=== PATIENT | female | born 1975 | race Caucasian/White ===

== ENCOUNTER → 2016-08-09 | Outpatient (CLI) | payer MEDICAID ==
--- NOTE | 2016-08-09 16:16 | RADIOLOGY REPORT (SQ) ---
EXAM DESCRIPTION: U/S OB 14+ TRNABD 1GES W/O DOP COMPLETED DATE/TIME: 08/09/2016 3:39 pm REASON FOR STUDY: ENCOUNTER FOR SUPERVISION OF OTHER NORMAL , SECOND TRIMESTER (Z34. Z34.82 ENCOUNTER FOR SUPRVSN OF NORMAL , SECOND TRI COMPARISON: None. TECHNIQUE: Static and Dynamic grayscale imaging performed of gravid uterus using transabdominal appr oach. Additional selected color Doppler and spectral images recorded. All stored on PACS. LIMITATIONS: positioning limits some anatomic evaluation. FINDINGS: EGA: 44 weeks 0 days TALA: 11/29/2016 EFW: 549 g PERCENTILE: Not calculated. KAMAR: 3.7 PLACENTA: Posterior grade 1 PRESENTATION: Breech. ANATOMY: HEART RATE: 145 beats per minute. FOUR CHAMBER HEART: Visualized. THREE VESSEL CORD: Yes. CORD INSERTION: Visualized. KIDNEYS AND BLADDER: Not well visualized. STOMACH: Visualized. Appears normal. SPINE: Spine not well visualized. BRAIN AND LATERAL VENTRICLES: Ventricles not well visualized. OTHER: No other significant finding. MATERNAL ADNEXA: Maternal ovaries not visualized. CERVICAL LENGTH: 3.7 cm Closed. OTHER: No other significant finding. IMPRESSION: LIVING INTRAUTERINE . ESTIMATED GESTATIONAL AGE 24 weeks 0 days Oligohydramnios. Trimester of : Second trimester - 13 weeks 1 day to 27 weeks 6 days. TECHNICAL DOCUMENTATION: JOB ID: [id number]- All Rights Reserved
== END ==
LOC: RAD 14:08
PROVIDERS: ATTEND Nurse Practitioner Women's Health
DX: O41.02X0 Oligohydramnios, second trimester, not applicable or unspecified (principal); Z3A.24 24 weeks gestation of pregnancy
CPT/HCPCS: 76805

== ENCOUNTER → 2016-09-09 | Outpatient (CLI) | payer MEDICAID ==
--- NOTE | 2016-09-09 16:29 | RADIOLOGY REPORT (SQ) ---
EXAM DESCRIPTION: U/S OB 14+ TRNABD 1GES W/O DOP COMPLETED DATE/TIME: 09/09/2016 4:06 pm REASON FOR STUDY: ENCOUNTER FOR SUPERVISION OF OTHER NORMAL , THIRD TRIMESTER Z34.83 ENCOU NTER FOR SUPRVSN OF NORMAL , THIRD TRIM COMPARISON: 08/09/2016 TECHNIQUE: Static and Dynamic grayscale imaging performed of gravid uterus using transabdominal appr oach. Additional selected color Doppler and spectral images recorded. All stored on PACS. LIMITATIONS: None. FINDINGS: EGA: 20 weeks 3 days TALA: 11/29/2016 EFW: Not recorded by technologist. PERCENTILE: Not recorded by technologist. KAMAR: 14.9 PLACENTA: Posterior. PRESENTATION: Breech. ANATOMY: HEART RATE: 157 beats per minute. FOUR CHAMBER HEART: Not visualized. THREE VESSEL CORD: Not visualized. CORD INSERTION: Not visualized. KIDNEYS AND BLADDER: Visualized. Appear normal. STOMACH: Not visualized. SPINE: Normal as visualized. BRAIN AND LATERAL VENTRICLES: Visualized. Appear normal. OTHER: No other significant finding. MATERNAL ADNEXA: Maternal ovaries not visualized. CERVICAL LENGTH: Not measured by technologist. OTHER: No other significant finding. IMPRESSION: LIVING INTRAUTERINE . ESTIMATED GESTATIONAL AGE 28 weeks 3 days. NO VISUALIZED ANOMALIES. Trimester of : Third trimester - 28 weeks to delivery. TECHNICAL DOCUMENTATION: JOB ID: [id number]- All Rights Reserved
== END ==
LOC: RAD 15:11
PROVIDERS: ATTEND Nurse Practitioner Women's Health
DX: Z34.83 Encounter for supervision of other normal pregnancy, third trimester (principal)
CPT/HCPCS: 76805

== ENCOUNTER 2016-10-18 17:27 | Outpatient (CLI) | payer MEDICAID ==
--- NOTE | 2016-10-18 18:09 | Non Stress Test Report ---
Non Stress Test Datetime Report Generated by CPN: 10/18/2016 18:09 DEMOGRAPHIC EGA NST: 34.0 INDICATION Indication for Study: Ordered by Provider Indication for Study (NST) Other: AMA MONITORING Monitor Explained: Monitor Explained; Test Explained; Patient Verbalized Understanding Time on Monitor: 10/18/2016 17:41 Time off Monitor: 10/18/2016 18:03 NST Duration: 22 NST INTERVENTIONS NST Interventions: PO Hydration; Reposition Patient Physician Notified NST: Dr Vincent BABY A: [id number] BABY A Movement : Present Contraction Frequency : 0 FHR Baseline : 120 Accelerations : 15X15 Decelerations : None Variability : Moderate 6-25bpm NST Review: Meets Criteria for Reactive NST NST Results: Reactive NST REPORT Report Trigger: Send Report
== END 2016-10-18 18:03 | disposition home or self-care (01) ==
LOC: LC 17:27
PROVIDERS: ATTEND Obstetrics & Gynecology
PROC: 4A1HXCZ Monitoring of Products of Conception, Cardiac Rate, External Approach (ICD-10-PCS; principal; 2016-10-18)
DX: O09.523 Supervision of elderly multigravida, third trimester (principal); Z3A.34 34 weeks gestation of pregnancy
CPT/HCPCS: 59025

== ENCOUNTER 2016-11-22 14:00 | Outpatient (CLI) | payer MEDICAID | END 2016-11-22 16:17 | disposition home or self-care (01) | LOC: LC 14:00 | PROVIDERS: ATTEND Specialist | PROC: 4A1HXCZ Monitoring of Products of Conception, Cardiac Rate, External Approach (ICD-10-PCS; principal; 2016-11-22) | DX: Z34.93 Encounter for supervision of normal pregnancy, unspecified, third trimester (principal) | CPT/HCPCS: 59025 ==

== ENCOUNTER 2016-12-02 20:31 | Inpatient (IN) | payer MEDICAID ==
--- NOTE | 2016-12-02 20:42 | Non Stress Test Report ---
Non Stress Test Datetime Report Generated by CPN: 12/02/2016 20:42 DEMOGRAPHIC EGA NST: 39.0 INDICATION Indication for Study: Other Indication for Study (NST) Other: repeat for AMA MONITORING Monitor Explained: Monitor Explained; Test Explained; Patient Verbalized Understanding Time on Monitor: 11/22/2016 15:40 Time off Monitor: 11/22/2016 16:00 NST Duration: 20 NST INTERVENTIONS NST Interventions: PO Hydration Physician Notified NST: K Matias, CNM BABY A: [id number] BABY A Movement : Present Contraction Frequency : x0 Accelerations : Prolonged Decelerations : None Variability : Moderate 6-25bpm NST Review: Meets Criteria for Reactive NST NST Review and Verified By : Rinku Dodd RN NST Results: Reactive NST REPORT Report Trigger: Send Report
[2016-12-02] MEDS ORDERED: MAG HYDROX/AL HYDROX/SIMETH SUSP 30 ML UDCUP PO PRN (21:00)
[2016-12-02] MEDS ORDERED: RINGERS SOLUTION,LACTATED 300 ML IV ONE (21:00)
[2016-12-02] MEDS ORDERED: DINOPROSTONE 10 MG VAGINAL INSERT.SR PV ONE (21:00)
[2016-12-02] MEDS ORDERED: OXYTOCIN/NORMAL SALINE 20 UNIT/1,000 ML RTUINJ IV PRN (21:00)
[2016-12-02] MEDS ORDERED: ACETAMINOPHEN 325 MG TABLET PO PRN (21:00)
[2016-12-02] MEDS ORDERED: ZOLPIDEM TARTRATE 5 MG TABLET PO PRN (21:00)
[2016-12-02] MEDS ORDERED: RINGERS SOLUTION,LACTATED 1,000 ML IV PRN (21:00)
[2016-12-02] MEDS ORDERED: DINOPROSTONE 10 MG VAGINAL INSERT.SR ONE (21:17)
[2016-12-02 22:15] LABS: ABSOLUTE EOSINOPHILS # (AUTO) 0.1 10^3/uL (0.0-0.6); ABSOLUTE LYMPHOCYTES (AUTO) 3.1 10^3/uL (0.5-4.7); ABSOLUTE MONOCYTES (AUTO) 0.8 10^3/uL (0.1-1.4); ABSOLUTE NEUT (AUTO) 10.1 10^3/uL (1.7-8.2); BASOPHILS % (AUTO) 0.2 % (0-2); EOSINOPHILS % (AUTO) 0.7 % (0-6); HEMATOCRIT 31.8 % (36.0-47.0); HEMOGLOBIN 10.9 g/dL (12.0-15.5); HGB HCT DIFFERENCE 0.9; LYMPHOCYTES % (AUTO) 21.9 % (13-45); MEAN CORPUSCULAR HEMOGLOBIN 29.7 pg (27.0-33.4); MEAN CORPUSCULAR HGB CONC 34.2 g/dL (32.0-36.0); MEAN CORPUSCULAR VOLUME 87 fl (80-97); MONOCYTES % (AUTO) 5.6 % (3-13); RED BLOOD COUNT 3.66 10^6/uL (3.72-5.28); RED CELL DISTRIBUTION WIDTH 14.3 % (11.5-14.0); SEGMENTED NEUTROPHILS % (AUTO) 71.6 % (42-78); WHITE BLOOD COUNT 14.1 10^3/uL (4.0-10.5)
[2016-12-02 22:40] LABS: APPEARANCE,URINE SLIGHTLY-CLOUDY; BILIRUBIN,URINE NEGATIVE (NEGATIVE); GLUCOSE, URINE NEGATIVE (NEGATIVE); KETONES,URINE NEGATIVE (NEGATIVE); LEUKOCYTE ESTERASE,URINE NEGATIVE (NEGATIVE); NITRITE,URINE NEGATIVE (NEGATIVE); PROTEIN,URINE NEGATIVE (NEGATIVE); URINE SPECIFIC GRAVITY 1.006; UROBILINOGEN,URINE NEGATIVE mg/dL (<2.0)
[2016-12-02 23:00] LABS: URINE BARBITURATES SCREEN NEGATIVE; URINE METHADONE SCREEN NEGATIVE; URINE PHENCYCLIDINE SCREEN NEGATIVE
[2016-12-02 23:05] LABS: URINE OPIATES LOW UNCONFIRMED POSITIVE
[2016-12-03] MEDS ORDERED: ZOLPIDEM TARTRATE 5 MG TABLET ONE (00:44)
[2016-12-03] MEDS ORDERED: OXYTOCIN/NORMAL SALINE 20 UNIT/1,000 ML RTUINJ ONE ×2 (11:40→19:11)
[2016-12-03] MEDS ORDERED: LIDOCAINE 1% INJ-PF (10 MG/ML) 30 ML SDV ONE (11:40)
[2016-12-03] MEDS ORDERED: MISOPROSTOL 0.2 MG TABLET ONE (11:40)
[2016-12-03] MEDS ORDERED: ACETAMINOPHEN 325 MG TABLET ONE (12:02)
--- NOTE | 2016-12-03 13:06 | L&D Progress Notes ---
PROGRESS NOTES Datetime Report Generated by CPN: 12/03/2016 13:06 PROGRESS NOTE Procedures: Artificial ROM; Sterile Vag Exam Plan: Continue Present Management; Induction Plan Other: may have epidural Informed Consent Obtained: Vaginal Delivery Informed Consent Obtained: Vaginal Delivery; Risks, Benefits and Alternatives Discussed Vital Signs : Reviewed; Within Normal Limits Comment: AROM, moderate amount bloody fluid Pt may have epidural Anticipte VAGINAL EXAM Dilatation: 4 Dilatation: 1 Effacement: 60 Effacement: 25 Station: -2 Station: -3 Contractions: every 2 min Contractions: rare MEMBRANES Membranes: Ruptured Membranes: Intact Amniotic Fluid Color: Bloody FETUS A FHR - Baseline: 155 Monitoring: External US Variability: Moderate 6-25bpm Accelerations: 15X15 Decelerations: None Estimated Weight (gm): 3200 Presentation: Vertex SIGNATURE SIGNATURE: [id number];[id number] SIGNATURE: 14,[id number] SIGNATURE: 14,[id number] Assignment: Tone Vincent DO Signature: with User ID: [email or web address] : with User ID: [email or web address]
[2016-12-03] MEDS ORDERED: FENTANYL CITRATE INJ/PF 100 MCG/2 ML AMPUL ONE ×3 (13:13→20:51)
[2016-12-03] MEDS ORDERED: BUPIVACAINE HCL 0.25 % INJ/PF (2.5 MG/1 ML) 30 ML VIAL ONE (13:14)
[2016-12-03] MEDS ORDERED: FENTANYL/BUPIVACAINE/NS/PF 200 MCG/100 ML RTUINJ EPI ONE (13:14)
[2016-12-03] MEDS ORDERED: PHENYLEPHRINE HCL INJ/PF 10 MG/1 ML SDV ONE (13:14)
[2016-12-03] MEDS ORDERED: EPHEDRINE SULFATE INJ 50 MG/1 ML AMPULE ONE (13:14)
--- NOTE | 2016-12-03 18:02 | L&D Progress Notes ---
PROGRESS NOTES Datetime Report Generated by CPN: 12/03/2016 18:02 PROGRESS NOTE Procedures: Sterile Vag Exam Plan: Continue Present Management Informed Consent Obtained: Vaginal Delivery Vital Signs : Reviewed Comment: sve as above moderate amount meconium fluid anticipate VAGINAL EXAM Dilatation: 6 Effacement: 80 Station: -1 Contractions: every 2 min MEMBRANES Membranes: Ruptured Amniotic Fluid Color: Meconium, Light FETUS A Monitoring: External US Variability: Moderate 6-25bpm Accelerations: 15X15 Decelerations: Variable FETUS C SIGNATURE: [id number];10,[id number] Assignment: Tone Vincent DO Signature: with User ID: Brittni : with User ID: [email or web address]
[2016-12-03] MEDS ORDERED: CEFAZOLIN 2 GM/D5W RTU 2 GM/50 ML RTUPB IV ONE (18:54)
[2016-12-03] MEDS ORDERED: CITRIC ACID/SODIUM CITRATE ORAL SOLN 15 ML UDCUP ONE (18:54)
[2016-12-03] MEDS ORDERED: SODIUM BICARBONATE 8.4% INJ 50 MEQ/50 ML DISP.SYRIN ONE ×2 (18:56→19:15)
--- NOTE | 2016-12-03 19:01 | L&D Progress Notes ---
PROGRESS NOTES Datetime Report Generated by CPN: 12/03/2016 19:01 PROGRESS NOTE Procedures: Sterile Vag Exam Plan: Deliver- Section Informed Consent Obtained: Section Delivery Vital Signs : Reviewed Comment: MAHIN and Dr. Vincent at bedside discussing mode of delivery Recommendations for delivery by c/s, discussed risks/benifits/and alternatives Pt and significant other agreeable to c/s, pt woould like btl, has signed consents Nursing staff at bedside, phone calls made. VAGINAL EXAM Dilatation: 6 Effacement: 80 Station: -1 Contractions: 2-5 FETUS A FHR - Baseline: 160 Monitoring: External US Variability: Moderate 6-25bpm Decelerations: Variable FHR Category: Category II FHR Comments: multiple variable decels FETUS C SIGNATURE: [id number];14,[id number] Assignment: Tone Vincent DO Signature: with User ID: Brittni : with User ID: [email or web address]
[2016-12-03] MEDS ORDERED: MIDAZOLAM 2 MG/2 ML INJ ONE ×2 (19:11→19:12)
[2016-12-03] MEDS ORDERED: OXYTOCIN 10 UNIT/ML VIAL ONE (19:11)
[2016-12-03] MEDS ORDERED: LIDOCAINE 2% INJ-PF (20 MG/ML) 10 ML AMPUL ONE (19:12)
[2016-12-03] MEDS ORDERED: MORPHINE SULFATE 10 MG/ML INJ ONE ×2 (19:12→20:25)
[2016-12-03] MEDS ORDERED: LIDOCAINE 1.5%/EPINEPHRINE INJ-PF 30 ML SDV INJ ONE (19:15)
[2016-12-03] MEDS ORDERED: MEASLES,MUMPS&RUBELLA VACC/PF 0.5 ML VIAL SUBCUT PRN (20:09)
[2016-12-03] MEDS ORDERED: OXYCODONE-ACETAMINOPHEN 5-325 MG TABLET PO PRN ×3 (20:09→20:17)
[2016-12-03] MEDS ORDERED: OXYTOCIN/NORMAL SALINE 20 UNIT/1,000 ML RTUINJ IV PRN (20:09)
[2016-12-03] MEDS ORDERED: ACETAMINOPHEN 325 MG TABLET PO PRN (20:09)
[2016-12-03] MEDS ORDERED: PROMETHAZINE HCL INJ 25 MG/1 ML VIAL IV PRN ×3 (20:09→20:17)
[2016-12-03] MEDS ORDERED: DIPH/PERTUSS(ACELL)/TETANUS VAC/PF 0.5 ML SYR (>=10YO) IM PRN (20:09)
[2016-12-03] MEDS ORDERED: DIPHENHYDRAMINE HCL 50 MG/ML VIAL IV PRN (20:17)
[2016-12-03] MEDS ORDERED: FENTANYL CITRATE INJ/PF 100 MCG/2 ML AMPUL IV PRN ×2 (20:17)
[2016-12-03] MEDS ORDERED: MEPERIDINE HCL/PF INJ 25 MG/1 ML DISP.SYRIN IV PRN (20:17)
[2016-12-03] MEDS ORDERED: ACETAMINOPHEN 100 ML IV ONE (20:25)
--- NOTE | 2016-12-03 20:47 | OPERATIVE REPORT E ---
Operative Report NAME: ABRIL FARAH : 1975 AGE: 41Y DATE OF SURGERY: 12/03/2016 ROOM: LR200 PREOPERATIVE DIAGNOSES: 1. A 40-week 4 day intrauterine . 2. Nonreassuring heart tones remote from delivery. 3. Positive opioid on urine drug screen. 4. Positive hepatitis C status. 5. Patient desires sterilization. POSTOPERATIVE DIAGNOSES: 1. A 40-week 4 day intrauterine . 2. Nonreassuring heart tones remote from delivery. 3. Positive opioid on urine drug screen. 4. Positive hepatitis C status. 5. Patient desires sterilization. SURGEON: Tone Vincent D.O. FLATBED OWNER OPERATOR: None. PROCEDURE: 1. Primary low-transverse section. 2. Bilateral tubal ligation using Filshie clips. ANESTHESIA: Epidural. COMPLICATIONS: None. PATHOLOGY: Placenta. ESTIMATED BLOOD LOSS: 600 mL. FINDINGS: 1. A viable male infant at 9:27 hours on 12/03/2016. Apgars 8 at one, 9 at five. Weight pending dictation. 2. Normal-appearing bilateral fallopian tubes and ovaries. PROCEDURE: The patient was taken to the operating room where spinal anesthesia was found to be working adequately. She was then placed in a dorsal supine position with a leftward tilt upon the operating room table. She was then prepped and draped in the normal sterile fashion. A scalpel was then used to make a Pfannenstiel skin incision. The skin incision was carried down through subcutaneous tissues to the layer of the fascia. The fascia was incised at midline and the fascial incision was extended bilaterally using the Bovie cautery. The superior fascial edge was grasped with Emely clamps, elevated, and the rectus muscles dissected off sharply and bluntly. Attention was then turned to the inferior fascial edge, which the rectus muscles dissected off sharply and bluntly. The rectus muscles were then in the midline, peritoneum identified, and entered bluntly with the surgeon's hands. A bladder blade was inserted. A scalpel was then used to make a low transverse hysterotomy incision. The infant was delivered through this incision in the cephalic position without difficulty and atraumatically. The nose and mouth were suctioned. The cord was clamped and cut. The infant was handed off to the awaiting french binding folder. Cord blood was then obtained. The placenta was then manually removed from the uterus. The uterus was exteriorized and cleared of all clots and debris. The hysterotomy incision was then reapproximated using 2 layers of 1-0 Vicryl in a running locking fashion, following closely with a second layer. Excellent hemostasis was noted. At this point in time, the bilateral tubal ligation was performed and a Filshie clips was placed in the midportion of each fallopian tube without difficulty. The uterus was then returned to the abdomen. Again the hysterotomy incision was reinspected and found to have excellent hemostasis. The rectus muscles were then reapproximated using 1-0 Vicryl in interrupted sutures. The fascia was then closed using 1-0 Vicryl in a running, non-locking fashion. The subcutaneous space was made hemostatic using Bovie cautery. The skin was closed with absorbable jessica, covered with an OpSite, and then with a pressure dressing. At this point in time, the procedure was terminated. All sponge, lap, and needle counts were correct x2. The patient tolerated the procedure well. The patient was taken to recovery room in stable condition. DICTATING PHYSICIAN: Tone Vincent DO [id number] PHY#: [id number] ID: [id number] JOB#: [id number] ACCT: [id number] cc:Tone Vincent D.O. >
[2016-12-03] MEDS: MORPHINE SULFATE 10 MG/ML INJ IV PRN ×2 (20:54→20:55)
--- NOTE | 2016-12-03 21:18 | Delivery Summary ---
Del Sum A-C Datetime Report Generated by CPN: 12/03/2016 21:18 DELIVERY PERSONNEL DELIVERY PERSONNEL: [id number] Delivery Doctor:: Tone Vincent DO Anesthesiologist:: Rose Marie Bill MD PUMP OPERATOR [employer]:: Tomas Clifton CRNA Labor and Delivery Nurse:: Collette Howard RN Neonatal Nurse Practitioner:: MELECIO Aleman Nursery Nurse:: Indira Walker RN Instructor Adjunct Surgical Technician/STEEPING PRESS TENDER: ST Brigida Instructor Adjunct Surgical Technician/STEEPING PRESS TENDER: ST Ángel Additional Personnel: : Tristan Fuentes STEEPING PRESS TENDER MATERNAL INFORMATION Delivery Anesthesia: Epidural Medications After Delivery: Pitocin Bolus-Please Comment; Pitocin Drip 20 Units/1000ml NSS Meds After Delivery Comment: Pitocin 20 Units in 1 L NS bolusing per order Maternal Complications: None LABOR SUMMARY EDC: 11/29/2016 00:00 No. Babies in Womb: 1 Attempted: No Labor Anesthesia: Epidural LABOR INFORMATION Reason for Induction: Post Dates; Other Reason for Induction- Other: AMA Onset of Labor: 12/03/2016 12:52 Cervical Ripening Agents: Cervidil Oxytocin: Induction Group B Beta Strep: negative Antibiotics # of Doses: 0 Steroids Given: None Reason Steroids Not Administered: Not Applicable MEMBRANES Membranes Rupture Method: Artificial Rupture of Membranes: 12/03/2016 12:52 Length of Rupture (hr): 6.58 Amniotic Fluid Color: Bloody Amniotic Fluid Amount: Small Amniotic Fluid Odor: Normal STAGES OF LABOR Stage 3 hr: 0 Stage 3 min: 1 Total Time in Labor hr: 6 Total Time in Labor min: 36 VAGINAL DELIVERY Episiotomy: None Laceration Type: None Laceration Repair: Not Applicable Sponge Count Correct: N/A Sharps Count Correct: N/A CSECTION DELIVERY Primary Indication: Nonreassuring Status CSection Urgency: Non-Scheduled CSection Incidence: Primary Labor: Labor Elective: N/A CSection Incision: Lower Uterine Transverse Sterilization Procedure: Ring and Clip Uterine Closure: Double-layer closure BABY A INFORMATION Infant Delivery Date/Time: 12/03/2016 19:27 Method of Delivery: Born in Route : No : N/A Forceps: N/A Vacuum Extraction: N/A Shoulder Dystocia : No PRESENTATION/POSITION BABY A Presentation: Cephalic Cephalic Presentation: Vertex Breech Presentation: N/A PLACENTA INFORMATION BABY A Placenta Delivery Time : 12/03/2016 19:28 Placenta Method of Delivery: Manual Removal Placenta Status: Delivered SCORES BABY A Heart Rate 1 min: >100 bpm Resp Effort 1 min: Good Cry Reflex Irritability 1 min: Cough or Sneeze or Pulls Away Muscle Tone 1 min: Active Motion Color 1 min: Body [place], Extremities Blue SCORE 1 MIN: 9 Heart Rate 5 min: >100 bpm Resp Effort 5 min: Good Cry Reflex Irritability 5 min: Cough or Sneeze or Pulls Away Muscle Tone 5 min: Active Motion Color 5 min: Body [place], Extremities Blue SCORE 5 MIN: 9 INFANT INFORMATION BABY A Gestational Age at Delivery: 40.4 Gestational Status: Full Term- 39- 40.6 Weeks Outcome : Liveborn Condition : Stable Sex: Male IDENTIFICATION BABY A Infant Verification Date/Time: 12/03/2016 19:30 ID Band Number: [id number] Mother's Name Verified: Yes Infant RN Verifying : Justin WalkerADITYA Additional Verifying Personnel: Justin Fuentes CNA WEIGHT/LENGTH BABY A Infant Birthweight (gm): 3445 Weight (lb): 7 Weight (oz): 10 Length (in): 20.00 Length (cm): 50.80 CORD INFORMATION BABY A No. Cord Vessels: 3 Nuchal Cord : N/A Cord Blood Taken: Yes-For Storage (Mom's Blood type +) Suction: Mouth; Nose ASSESSMENT BABY A Complications: Multiple Variable Decels; Meconium Physical Findings at Delivery: Within Normal Limits Infant Respirations: Appears Normal Skin to Skin: Yes Skin to Skin Time (min): 10 Infant Care By: ADITYA Brewster Transferred To: Nursery BABY B INFORMATION : N/A SIGNATURES Signature: with User ID: [email or web address]
[2016-12-03] MEDS: FENTANYL CITRATE INJ/PF 100 MCG/2 ML AMPUL IV PRN ×2 (21:47→21:54)
[2016-12-03] MEDS: HYDROMORPHONE HCL INJ/PF 2 MG/ML AMPULE IV PRN (22:26)
[2016-12-04] MEDS: OXYCODONE-ACETAMINOPHEN 5-325 MG TABLET PO PRN ×4 (00:13→19:28)
[2016-12-04] MEDS ORDERED: KETOROLAC TROMETHAMINE INJ/PF 30 MG/1 ML SDV IV ONE (01:15)
[2016-12-04] MEDS: HYDROMORPHONE HCL INJ/PF 2 MG/ML AMPULE IV PRN (04:28)
[2016-12-04] MEDS: KETOROLAC TROMETHAMINE INJ/PF 30 MG/1 ML SDV IV SCH ×3 (06:10→21:01)
[2016-12-04 06:52] LABS: HEMATOCRIT 26.5 % (36.0-47.0); HEMOGLOBIN 8.9 g/dL (12.0-15.5); HGB HCT DIFFERENCE 0.2; MEAN CORPUSCULAR HEMOGLOBIN 29.5 pg (27.0-33.4); MEAN CORPUSCULAR HGB CONC 33.7 g/dL (32.0-36.0); MEAN CORPUSCULAR VOLUME 88 fl (80-97); RED BLOOD COUNT 3.02 10^6/uL (3.72-5.28); RED CELL DISTRIBUTION WIDTH 14.4 % (11.5-14.0); WHITE BLOOD COUNT 15.9 10^3/uL (4.0-10.5)
[2016-12-04] MEDS: DOCUSATE SODIUM 100 MG CAPSULE PO SCH ×2 (09:55→17:08)
[2016-12-04] MEDS: PRENATAL VITAMIN W-O CA NO5/FE FUMARATE/FA CAPSULE PO SCH (09:55)
--- NOTE | 2016-12-04 13:47 | PDOC PROGRESS REPORT ---
Subjective-OB Subjective: Post Delivery Day: 41 year old. Denies any needs at this time. Pt doing well, no complaints. She reports light bleeding, regular diet and voiding without difficulty. Denies flatus. Ambulatory. Physical Exam (OB) Vital Signs: Temp Pulse Resp BP Pulse Ox 97.6 F 82 18 103/66 98 12/04/16 04:45 12/04/16 04:45 12/04/16 04:45 12/04/16 04:45 12/04/16 04:45 Intake & Output 12/03/16 12/04/16 12/05/16 06:59 06:59 06:59 Intake Total 400 240 Output Total 1100 600 Balance -700 -360 Weight 62.18 kg - Dressing Removed: No Incision: Dressing - Lochia Lochia Amount: Scant < 10 ml Lochia Color: Rubra/Red - Abdomen Description: Tender, Soft, Round Hernia Present: No Fundal Description: Firm, Midline Fundal Height: u/u - u/2 Objective-Diagnostic Laboratory: 12/04/16 06:03 12/04/16 06:03 WBC 15.9 H RBC 3.02 L Hgb 8.9 L Hct 26.5 L MCV 88 MCH 29.5 MCHC 33.7 RDW 14.4 H Plt Count 308 Assessment and Plan(PN) - Assessment and Plan (1) delivery delivered Is this a current diagnosis for this admission?: Yes (2) Failed induction of labor, delivered Is this a current diagnosis for this admission?: Yes - Time Spent with Patient Time with patient: Less than 15 minutes Medications reviewed and adjusted accordingly: Yes - Disposition Anticipated Discharge: Home Within: within 24 hours
[2016-12-04] MEDS: SIMETHICONE 80 MG TAB.CHEW PO PRN ×3 (14:26→23:32)
[2016-12-04] MEDS: FERROUS SULFATE 325 MG TABLET PO SCH (17:08)
[2016-12-04] MEDS: ASCORBIC ACID 500 MG TABLET PO SCH (17:08)
[2016-12-05] MEDS: OXYCODONE-ACETAMINOPHEN 5-325 MG TABLET PO PRN ×5 (01:35→22:25)
[2016-12-05] MEDS: KETOROLAC TROMETHAMINE INJ/PF 30 MG/1 ML SDV IV SCH ×3 (05:59→21:01)
[2016-12-05] MEDS: IBUPROFEN 800 MG TABLET PO PRN ×3 (06:00→18:16)
[2016-12-05] MEDS ORDERED: BENZONATATE 100 MG CAPSULE PO ONE (08:15)
--- NOTE | 2016-12-05 09:36 | PDOC PROGRESS REPORT ---
Subjective-OB Subjective: Post Delivery Day: 2 41 year old. Denies any needs at this time, states lochia is stable, pain well controlled, voiding without difficulty, passing gas, tolerating diet. Would like to stay 1 more day since because baby is not being discharged. Physical Exam (OB) Vital Signs: Temp Pulse Resp BP Pulse Ox 98.3 F 78 15 117/70 98 12/05/16 07:24 12/05/16 07:24 12/05/16 07:24 12/05/16 07:24 12/05/16 07:24 Intake & Output 12/04/16 12/05/16 12/06/16 06:59 06:59 06:59 Intake Total 400 240 Output Total 1100 600 Balance -700 -360 - PIH/Pre-Eclampsia Clonus: Negative - Dressing Removed: Yes Incision: Dressing, Well Approximated Closure Type: Surgical Glue - Lochia Lochia Amount: Small 10-25 ml Lochia Color: Rubra/Red - Abdomen Description: Soft, Round, Distended Hernia Present: No Fundal Description: Firm, Midline Fundal Height: u/u - u/2 Objective-Diagnostic Laboratory: 12/04/16 06:03 Assessment and Plan(PN) - Assessment and Plan (1) Acute blood loss anemia Is this a current diagnosis for this admission?: Yes Plan: ferrous sulfate increase dietary iron (2) History of heroin use Is this a current diagnosis for this admission?: Yes Plan: d/c personal financial planner (3) delivery delivered Is this a current diagnosis for this admission?: Yes Plan: routine postop care (4) Failed induction of labor, delivered Is this a current diagnosis for this admission?: Yes Plan: n/a - Time Spent with Patient Time with patient: Less than 15 minutes Critical Time spent with patient: Less than 15 minutes Medications reviewed and adjusted accordingly: Yes - Disposition Anticipated Discharge: Home Within: within 24 hours
[2016-12-05] MEDS: DOCUSATE SODIUM 100 MG CAPSULE PO SCH ×2 (10:00→18:17)
[2016-12-05] MEDS: PRENATAL VITAMIN W-O CA NO5/FE FUMARATE/FA CAPSULE PO SCH (10:00)
[2016-12-05] MEDS: ASCORBIC ACID 500 MG TABLET PO SCH ×2 (10:00→18:18)
[2016-12-05] MEDS: FERROUS SULFATE 325 MG TABLET PO SCH ×3 (10:01→18:18)
[2016-12-05] MEDS ORDERED: DIPH/PERTUSS(ACELL)/TETANUS VAC/PF 0.5 ML SYR (>=10YO) IM PRN (15:30)
[2016-12-05] MEDS ORDERED: ZOLPIDEM TARTRATE 5 MG TABLET PO PRN (15:30)
[2016-12-05] MEDS ORDERED: MEASLES,MUMPS&RUBELLA VACC/PF 0.5 ML VIAL SUBCUT PRN (15:30)
[2016-12-06] MEDS: IBUPROFEN 800 MG TABLET PO PRN ×3 (00:29→12:41)
[2016-12-06] MEDS: KETOROLAC TROMETHAMINE INJ/PF 30 MG/1 ML SDV IV SCH (05:22)
[2016-12-06] MEDS: OXYCODONE-ACETAMINOPHEN 5-325 MG TABLET PO PRN ×2 (06:06→12:40)
[2016-12-06 07:10] LABS: OPIATE CONFIRMATION Positive (.)
--- NOTE | 2016-12-06 10:09 | PDOC PROGRESS REPORT ---
Subjective-OB Subjective: Post Delivery Day: 41 year old. Denies any needs at this time Sitting up in bed, feeling better, baby not going home today, may be Friday, pain under control, bottle feeding, eating well, ambulating Physical Exam (OB) Vital Signs: Temp Pulse Resp BP Pulse Ox 98.6 F 73 16 128/70 H 100 12/06/16 08:03 12/06/16 08:03 12/06/16 08:03 12/06/16 08:03 12/06/16 08:03 Intake & Output 12/05/16 12/06/16 12/07/16 06:59 06:59 06:59 Intake Total 240 350 Output Total 600 Balance -360 350 - PIH/Pre-Eclampsia DTR's: 2 + Clonus: Negative Headache: Absent Epigastric Pain: No Visual Changes: No - Dressing Removed: No - opsite Incision: Dressing Closure Type: Surgical Glue - Lochia Lochia Amount: Small 10-25 ml Lochia Color: Rubra/Red - Abdomen Description: Tender, Soft, Round Hernia Present: No Fundal Description: Firm, Midline Fundal Height: u/u - u/2 Objective-Diagnostic Laboratory: 12/04/16 06:03 Assessment and Plan(PN) - Assessment and Plan (1) Hepatitis C antibody positive in blood Is this a current diagnosis for this admission?: Yes (2) Acute blood loss anemia Is this a current diagnosis for this admission?: Yes (3) delivery delivered Is this a current diagnosis for this admission?: Yes (4) Failed induction of labor, delivered Is this a current diagnosis for this admission?: Yes - Time Spent with Patient Time with patient: Less than 15 minutes Medications reviewed and adjusted accordingly: Yes - Disposition Anticipated Discharge: Home Within: Other - home today
--- NOTE | 2016-12-06 10:16 | PDOC DISCHARGE SUMMARY ---
Final Diagnosis Discharge Date: 12/06/16 - Final Diagnosis (1) Hepatitis C antibody positive in blood Is this a current diagnosis for this admission?: Yes (2) Acute blood loss anemia Is this a current diagnosis for this admission?: Yes (3) delivery delivered Is this a current diagnosis for this admission?: Yes (4) Failed induction of labor, delivered Is this a current diagnosis for this admission?: Yes Discharge Data - Discharge Medication Home Medications: No122/Iron/Folic Acid [ Multi Tablet] 1 each PO DAILY 03/24/15 Ferrous Sulfate [Feosol 325 mg Tablet] 325 mg PO TID #30 tablet 12/06/16 Ibuprofen [Motrin 800 mg Tablet] 800 mg PO Q6HP PRN #30 tablet 12/06/16 Oxycodone HCl/Acetaminophen [Percocet 5-325 mg Tablet] 1 tab PO Q4HP PRN #30 tablet 12/06/16 Gestational Age: 40.4 Reason(s) for Admission: Induction of Labor, Advanced Maternal Age Admission Note: AMA, Heroin use during , Hep C +, Opiots + Procedures: NST, Ultrasound Intrapartum Procedure(s): : Low Cervical, Transverse, Tubal Ligation - Data Baby 1 Male Weight: 3.459 kg Home with Mother: No - Observation Complications: No - Diagnosis Test Laboratory: Temp Pulse Resp BP Pulse Ox 98.6 F 73 16 128/70 H 100 12/06/16 08:03 12/06/16 08:03 12/06/16 08:03 12/06/16 08:03 12/06/16 08:03 12/02/16 12/02/16 12/04/16 22:02 22:26 06:03 RBC 3.66 L 3.02 L Hgb 10.9 L 8.9 L Hct 31.8 L 26.5 L Urine Opiates Screen UNCONFIRMED POSITIVE - Discharge information/Instructions Discharge Activity: Activity As Tolerated, No Lifting Over 10 Pounds, No Lifting /Push/Pulling, Pelvic Rest Discharge Diet: As Tolerated, Regular Disposition: HOME, SELF-CARE Follow up with: [facility] in: 1, Weeks
[2016-12-06] MEDS: DOCUSATE SODIUM 100 MG CAPSULE PO SCH (10:20)
[2016-12-06] MEDS: ASCORBIC ACID 500 MG TABLET PO SCH (10:20)
[2016-12-06] MEDS: PRENATAL VITAMIN W-O CA NO5/FE FUMARATE/FA CAPSULE PO SCH (10:20)
[2016-12-06] MEDS: FERROUS SULFATE 325 MG TABLET PO SCH (10:21)
[2016-12-06 15:22] VITALS: BP 124/76
--- NOTE | 2016-12-11 10:17 | Admission Physical ---
Datetime Report Generated by CPN: 12/11/2016 10:16 CURRENT ADMISSION Chief Complaint: Scheduled Induction of Labor Indication for Induction: Other Indication for Induction: Term, Intrauterine ; No Active Labor; Intact Membranes; Induction of Labor Indication for Induction- Other: advanced Maternal Age Admit Plan: Admit to Unit; Initiate Labor Induction Protocol ALLERGIES Medication Allergies: No Medication Allergies: No Known Allergies (12/02/2016) Medication Allergies: No Known Allergies (11/22/2016) Medication Allergies: No Known Allergies (09/06/2015) Latex: No Latex Allergies Food Allergies: no food allergies Environmental Allergies: no environmental allergies OBSTETRICAL HISTORY EDC: 11/29/2016 00:00 : 11 Para: 3 Term: 3 : 0 SAB: 6 IAB: 1 Ectopic: 0 Livin Cesareans: 0 VBACs: 0 Multiple Births: 0 Gestational Diabetes: No Rh Sensitization: No Incompetent Cervix: No ZACH: No Infertility: No ART Treatment: No Uterine Anomaly: No IUGR: No Hx Previous C/S: No Macrosomia: Yes Hx Loss/Stillborn: No PIH: No Hx : No Placenta Previa/Abruption: No Depression/PP Depression: No PTL/PROM: No Post Hemorrhage: No Current Procedures: Ultrasound; NST Obstetrical History Comments: G1- 1995 41 week 7 lb 8 oz male G2- 1997 6 week SAB G3- 2000 41 week 8 lb male ( via suicide 2015) G4- 2002 6 week SAB G5- 2003 40 week 8 lb 8 oz male G6- 2005 11 week EAB G- 2013 11 week SAB, blood transfusion G03/2015 6 week SAB G9- 07/2015 12 week SAB G1- 02/2016 6 week SAB G11- Current, heroin use, AMA, late PNC SEE RECORDS Alcohol: No Alcohol Frequency: Occasional Marijuana : No Cocaine: No Other Illicit Drugs: Yes Illicit Drug Comments: Per prenantal chart from 11/22/2016 visit, patient admits to using heroin until about 5-6 weeks ago. Patient denied current use today during repeat NST. Cigarettes: Current Everyday Smoker. [id number] Cigarette Frequency: 5 - 10 per day Advised to Stop: Yes Cigarette Comments: Limits to 6 cigarettes/ day MEDICAL HISTORY Diabetes: No Blood Transfusion: Yes Pulmonary Disease (Asthma, TB): Yes Breast Disease: No Hypertension: No Food Counter Worker Surgery: No Heart Disease: No Hosp/Surgery: No Autoimmune Disorder: No Anesthetic Complications: No Kidney Disease: No Abnormal Pap Smear: No Neuro/Epilepsy: No Psychiatric Disorders: No Other Medical Diseases: No Hepatitis/Liver Disease: No Significant Family History: No Varicosities/Phlebitis: No Trauma/Violence : No Thyroid Dysfunction: No Medical History Comments: Blood transfusion - 2013 2 units transfused following miscarriage Asthma - only when exposed to mold; has inhaler for rescue; heroin use; hepatitis C; LSGIL pap INFECTIOUS HISTORY Gonorrhea: No Genital Herpes: No Chlamydia: No Tuberculosis: No Syphilis: No Hepatitis: No HIV/AIDS Exposure: No Rash or Viral Illness: No HPV: No PHYSICAL EXAM General: Normal HEENT: Normal Neurologic: Normal Thyroid: Normal Heart: Normal Lungs: Normal Breast: Deferred Back: Normal Abdomen: Normal Genitourinary Exam: Normal Extremities: Normal DTRs: Normal Pelvic Type: Adequate Vital Signs: Reviewed VAGINAL EXAM Dilatation: 6 Dilatation: 6 Dilatation: 4 Dilatation: 1 Effacement: 80 Effacement: 80 Effacement: 60 Effacement: 25 Station: -1 Station: -1 Station: -2 Station: -3 Contraction Comments: 2-5 Contraction Comments: every 2 min Contraction Comments: every 2 min Contraction Comments: rare MEMBRANES Membranes: Ruptured Membranes: Ruptured Membranes: Intact Amniotic Fluid Color: Meconium, Light Amniotic Fluid Color: Bloody FETUS A EGA: 40.3 Monitoring: External US FHR- Baseline: 135 Variability: Moderate 6-25bpm Accelerations: 15X15 Decelerations: None Estimated Weight (gm): 3200 Presentation: Vertex Admit Comment: 41yo at 40+3ega (FTSVD x 3. son delivered 2000 committed suicide last year). IOL due to AMA. c/b AMA and late PNC, Heroin use up until approx 5wks ago, smoker, LGSIL pap smear. No FSE reviewed with pt. Reviewed previously with pt that due to AMA that needed delivery approx 40wks. IOL process reviewed with pt. GBS negative. IOL initiated with cervidil. PLANS FOR LABOR AND DELIVERY Labor and Delivery: None Pain Management: Epidural Feeding Preference: Both Benefit of Breast Feed Discussed: Yes Circumcision: Yes INFORMED CONSENT Informed Consent Obtained: Section Delivery Informed Consent Obtained: Vaginal Delivery Informed Consent Obtained: Vaginal Delivery Informed Consent Obtained: Vaginal Delivery; Risks, Benefits and Alternatives Discussed Signature: with User ID: [email or web address]
== END 2016-12-06 16:23 | disposition home or self-care (01) | DRG 765 ==
LOC: LR 20:31 → 2S 12-03 22:00
PROVIDERS: ADMIT Student in an Organized Health Care Education/Training Program; ATTEND Student in an Organized Health Care Education/Training Program
PROC: 4A1HXCZ Monitoring of Products of Conception, Cardiac Rate, External Approach (ICD-10-PCS; 2016-12-02)
PROC: 10D00Z1 Extraction of Products of Conception, Low, Open Approach (ICD-10-PCS; principal; 2016-12-03)
PROC: 0UL70CZ Occlusion of Bilateral Fallopian Tubes with Extraluminal Device, Open Approach (ICD-10-PCS; 2016-12-03)
DX: O76 Abnormality in fetal heart rate and rhythm complicating labor and delivery (principal); O99.324 Drug use complicating childbirth; D62 Acute posthemorrhagic anemia; O98.42 Viral hepatitis complicating childbirth; B19.20 Unspecified viral hepatitis C without hepatic coma; O61.0 Failed medical induction of labor; F11.90 Opioid use, unspecified, uncomplicated; O77.0 Labor and delivery complicated by meconium in amniotic fluid; O48.0 Post-term pregnancy; O99.02 Anemia complicating childbirth; Z3A.40 40 weeks gestation of pregnancy; Z37.0 Single live birth; Z30.2 Encounter for sterilization
CPT/HCPCS: 1961; 36415; 80307; 80361; 81005; 85025; 85027; 86592; 86850; 86900; 86901; 88307; 94760; 94799; G6056; J0131; J0690; J1170; J1885; J2250; J2270; J2370; J2590; J3010; J3490

== ENCOUNTER 2018-01-28 09:52 | Emergency (ER) | payer MEDICAID ==
[2018-01-28] MEDS ORDERED: LIDOCAINE 2% VISCOUS SOLN 20 ML UDCUP PO ONE (10:29)
--- NOTE | 2018-01-28 11:02 | ER Document Report ---
ED Oral Problem - General Chief Complaint: Toothache Stated Complaint: MOUTH PAIN Time Seen by Provider: 01/28/18 10:15 Mode of Arrival: Ambulatory Information source: Patient Notes: 42-year-old female presents to ED for complaint of toothache for more than a week. She states that right side of her jaw started swelling yesterday. She states the pain is much worse today. Patient is alert and oriented respirations regular and unlabored speaking in full sentences walks with a steady gait. TRAVEL OUTSIDE OF THE [place] IN LAST 30 DAYS: No - HPI Patient complains to provider of: Swelling of face, Swelling of jaw, Toothache Onset: Last week Onset: Gradual Quality of pain: Pressure, Sharp Severity: Moderate Pain Level: 4 Sore throat: Moderate Swollen jaw/face: Moderate Associated symptoms: Facial pain, Jaw pain, Toothache Worsened by: Nothing Similar symptoms previously: Yes Recently seen / treated by doctor/dentist: No - Related Data Allergies/Adverse Reactions: No Known Allergies Allergy (Verified 01/28/18 09:54) Past Medical History - General Information source: Patient - Social History Smoking Status: Current Every Day Smoker Cigarette use (# per day): Yes - Half pack a day Chew tobacco use (# tins/day): No Smoking Education Provided: Yes - Minutes Frequency of alcohol use: Social - 2 times a week Drug Abuse: None Lives with: Spouse/Significant other Family History: Reviewed & Not Pertinent, CVA, Hyperlipidemia, Malignancy Patient has suicidal ideation: No Patient has homicidal ideation: No - Past Medical History Cardiac Medical History: Reports: None Pulmonary Medical History: Reports: Hx Asthma EENT Medical History: Reports: None Neurological Medical History: Reports: Hx Migraine Endocrine Medical History: Reports: None Renal/ Medical History: Reports: Hx Kidney Stones, Hx Ovarian Cysts Malignancy Medical History: Reports: None GI Medical History: Reports: Hx Gastritis, Hx Gastroesophageal Reflux Disease, Hx Ulcer Musculoskeletal Medical History: Reports Hx Musculoskeletal Trauma Skin Medical History: Reports None Psychiatric Medical History: Reports: Hx Anxiety, Hx Depression Traumatic Medical History: Reports: None Infectious Medical History: Reports: None Past Surgical History: Reports: Hx Dilation and Curettage, Hx Gynecologic Surgery - Immunizations Immunizations up to date: Yes Hx Diphtheria, Pertussis, Tetanus Vaccination: Yes - 2010 Review of Systems - Review of Systems Notes: REVIEW OF SYSTEMS: CONSTITUTIONAL : Denies fever, chills, or sweats. Denies recent illness. EENT: Denies eye, ear, or throat. Denies nasal or sinus congestion or discharge. Complains of right upper jaw pain and swelling to the right cheek just above her right jaw. States the pain in her upper jaw started a week or more ago and the swelling started yesterday. CARDIOVASCULAR: Denies chest pain. Denies palpitations or racing or irregular heart beat. Denies ankle edema. RESPIRATORY: Denies cough, cold, or chest congestion. Denies shortness of breath, difficulty breathing, or wheezing. GASTROINTESTINAL: Denies abdominal pain or distention. Denies nausea, vomiting , or diarrhea. Denies blood in vomitus, stools, or per rectum. Denies black, tarry stools. Denies constipation. GENITOURINARY: Denies difficulty urinating, painful urination, burning, frequency, blood in urine, or discharge. FEMALE GENITOURINARY: Denies vaginal bleeding, heavy or abnormal periods, irregular periods. Denies vaginal discharge or odor. MUSCULOSKELETAL: Denies back or neck pain or stiffness. Denies joint pain or swelling. SKIN: Denies rash, lesions or sores. HEMATOLOGIC : Denies easy bruising or bleeding. LYMPHATIC: Denies swollen, enlarged glands. NEUROLOGICAL: Denies confusion or altered mental status. Denies passing out or loss of consciousness. Denies dizziness or lightheadedness. Denies headache. Denies weakness or paralysis or loss of use of either side. Denies problems with gait or speech. Denies sensory loss, numbness, or tingling. Denies seizures. PHYSICAL EXAMINATION: GENERAL: Well-appearing, well-nourished and in no acute distress. HEAD: Atraumatic, normocephalic. EYES: Pupils equal round and reactive to light, extraocular movements intact, conjunctiva are normal. ENT: Multiple decayed teeth upper and lower jaw right and left side. Abscess to the right upper jaw going into the cheek. NECK: Normal range of motion, supple without lymphadenopathy LUNGS: Breath sounds clear to auscultation bilaterally and equal. No wheezes rales or rhonchi. HEART: Regular rate and rhythm without murmurs ABDOMEN: Soft, nontender, nondistended abdomen. No guarding, no rebound. No masses appreciated. Female : deferred Musculoskeletal: Normal range of motion, no pitting or edema. No cyanosis. NEUROLOGICAL: Cranial nerves grossly intact. Normal speech, normal gait. Normal sensory, motor exams PSYCH: Normal mood, normal affect. SKIN: Warm, Dry, normal turgor, no rashes or lesions noted. PSYCHIATRIC: Denies anxiety or stress. Denies depression, suicidal ideation, or homicidal ideation. ALL OTHER SYSTEMS REVIEWED AND NEGATIVE. Dictation was performed using [employer] voice recognition software Physical Exam - Vital signs Vitals: Temp Pulse Resp BP Pulse Ox 98.5 F 94 18 141/97 H 98 01/28/18 09:56 01/28/18 09:56 01/28/18 09:56 01/28/18 09:56 01/28/18 09:56 Course - Re-evaluation Re-evalutation: 01/28/18 19:06 Dr. Infante was consulted for this abscess to the right cheek. The area was I indeed with an 18-gauge needle with minimal purulent drainage return. Lidocaine was also instilled into the area to help with the discomfort. Patient tolerated well. Patient was treated with penicillin and discharged home with instructions to follow-up with dentist in the next couple days for definitive treatment. - Vital Signs Vital signs: Temp Pulse Resp BP Pulse Ox 98.4 F 85 14 110/81 98 01/28/18 11:24 01/28/18 11:24 01/28/18 11:24 01/28/18 11:24 01/28/18 11:24 Discharge - Discharge Clinical Impression: Pain due to dental caries, Dental abscess Condition: Stable Disposition: HOME, SELF-CARE Instructions: Use of Siuw-Ycf-Aiefdyk Ibuprofen ([facility]) Additional Instructions: TOOTHACHE: Your pain is due to dental decay. The tooth must be repaired in order for you to feel better. You will, therefore, be referred to a dentist. We do not have dentists on the staff at [facility]. Severe swelling or drainage around a tooth usually means a dental abscess. This also requires evaluation and treatment by the dentist, but antibiotics may be prescribed while awaiting dental treatment. You should be rechecked immediately if you develop major swelling of the face, increasing pain, a lump in the jaw or gums, headache, difficulty swallowing, or fever. Toradol Injection You have been given an injection of ketorolac tromethamine (Toradol). This is an excellent, safe drug for pain control. It also has potent antiinflammatory action. You should have significant pain relief within about one hour. Toradol is not addicting and is non-sedating. It does not interfere with driving or work. Call or return if you develop itching, hives, shortness of breath, or rash. PENICILLIN V K: You have been given a prescription for Penicillin VK. Your physician has determined that this is the best antibiotic for your condition. Pen VK can be taken with meals, however more of the antibiotic gets into the bloodstream if it's taken on an empty stomach. Penicillin usually has no side effects. However, allergy to penicillins is common. If you have had an allergic reaction to any drug of the penicillin family, you should never take any other penicillin. Notify your doctor at once if you develop hives, itching, swelling, faintness, or shortness of breath. Salt and soda solution 1 quart of water 1 tablespoon of salt 1 teaspoon of baking soda Mixed 3 ingredients together and boil for 1 minute Placed in a covered quart jar Use 1/2 ounce of cold solution to gargle 3 times a day FOLLOW-UP CARE: You have been referred for follow-up care to the dentists listed below. Call the dentists office for an appointment as you were instructed or within the next two days. If you experience worsening or a significant change in your symptoms, notify the physician immediately or return to the Emergency Department at any time for re-evaluation. [facility] [address] [place], [place] [facility] [address] [place] [address] [facility] [address] [facility] [address] [facility] AddThisartesia [facility] hospitalNetPosa [facility] [address] [facility]. [email or web address] [facility] [address] [place] [address] Friday- 8:00am to 5:00 pm Will see patients from other counties. Charges based on income and family size and accepts Medicare, Medicaid, and Insurances Will pull molars [facility] [place] [address] Hours of Operation 8:00 am - 4:30 pm weekdays The following dental offices accept Medicaid: [facility] Dr. Patricia Dr. Berman Dr. White Dr. Flowers Jesus Patel, Neil, and Prakash oral surgery Dr. Segura ([place]) Dr. Leonardo ([place]) [facility] Drs. Vila ([place]) Dr. Louis ([place]) [facility] Dr. Benítez ([place]) Drs. Kelley and ([place]) Medicaid Care Line Prescriptions: Penicillin V Potassium [Penicillin Vk 500 mg Tablet] 500 mg PO BID #20 tablet Forms: Elevated Blood Pressure, Smoking Cessation Education Referrals: WILLY ANNA DO [Primary Care Provider] - Follow up as needed
[2018-01-28] MEDS ORDERED: PENICILLIN V POTASSIUM 500 MG TABLET PO ONE (11:08)
[2018-01-28] MEDS ORDERED: KETOROLAC TROMETHAMINE 60 MG/2 ML SDV IM ONE (11:08)
[2018-01-28 11:24] VITALS: BP 110/81
== END 2018-01-28 11:25 | disposition home or self-care (01) ==
LOC: ER 09:52
DX: K04.7 Periapical abscess without sinus (principal); K02.9 Dental caries, unspecified; K08.89 Other specified disorders of teeth and supporting structures; J45.909 Unspecified asthma, uncomplicated; F17.210 Nicotine dependence, cigarettes, uncomplicated; Z71.6 Tobacco abuse counseling
CPT/HCPCS: 99282; 96372; J1885; J3490 ×2